=== PATIENT | female | born 1980 | race Caucasian/White ===

== ENCOUNTER 2017-12-02 07:33 | Inpatient (IN) | payer BC ==
[~2017-12-02] VITALS: Ht 162.6 cm; Wt 103.0 kg
[2017-12-02] MEDS: LR 1,000 ML IV SCH ×2 (07:49→23:30)
[2017-12-02] MEDS ORDERED: CLINDAMYCIN 900 mg/50mL D5W 50 ML IV ONE (10:30)
[2017-12-02] MEDS ORDERED: CEFAZOLIN 2 GM IVPB PREMIX 50 ML IV ONE (10:30)
[2017-12-02 11:15] LABS: BASOPHILS % (AUTO) 0.5 % (0.0-2.0); EOSINOPHILS # (AUTO) 0.1 K/uL (0.0-0.4); EOSINOPHILS % (AUTO) 0.7 % (0.0-4.0); HEMATOCRIT 38.7 % (36-48); HEMOGLOBIN 12.9 g/dL (12.0-16.0); LYMPHOCYTES % (AUTO) 24.2 % (20.5-51.5); MEAN CORPUSCULAR HEMOGLOBIN 29 pg (27-31); MEAN CORPUSCULAR HGB CONC 33 % (32-36); MEAN CORPUSCULAR VOLUME 86 fL (79.0-98.0); MONOCYTES # (AUTO) 0.4 K/uL (0.0-1.0); MONOCYTES % (AUTO) 4.4 % (1.7-9.3); NEUTROPHILS # (AUTO) 5.8 K/uL (1.8-7.7); NEUTROPHILS % (AUTO) 70.2 % (40.0-70.0); PLATELET COUNT (AUTO) 233 K/uL (130-430); RED BLOOD CELL COUNT(AUTO) 4.49 MIL/uL (4.2-6.2); RED CELL DISTRIBUTION WIDTH 14.5 % (9.0-15.0); WHITE BLOOD COUNT (AUTO) 8.3 K/uL (4.8-10.8)
[2017-12-02 12:05] LABS: BILIRUBIN,URINE NEGATIVE (NEGATIVE); BLOOD, URINE NEGATIVE (NEGATIVE); CLARITY/URINE CLEAR (CLEAR); COLOR,URINE YELLOW (YELLOW); GLUCOSE,URINE NEGATIVE (NEGATIVE); KETONES,URINE 1+ (NEGATIVE); LEUKOCYTE ESTERASE ,URINE TRACE (NEGATIVE); NITRITE, URINE NEGATIVE (NEGATIVE); PROTEIN URINE TRACE (NEGATIVE); UROBILINOGEN,URINE 0.2 (0.2-1.0)
[2017-12-02 12:25] LABS: BACTERIA,URINE RARE /HPF (None Seen); YEAST,URINE None Seen /HPF (None Seen)
[2017-12-02 12:26] LABS: MUCUS,URINE None Seen /LPF (None Seen)
[2017-12-02] MEDS ORDERED: LR 1,000 ML IV ONE (12:27)
[2017-12-02] MEDS ORDERED: MORPHINE SULFATE 10MG/10ML PF AMP SP SCH (14:00)
[2017-12-02] MEDS ORDERED: NALOXONE HCL 0.4 MG/ML AMP (NARCAN) IVP PRN ×2 (14:00)
[2017-12-02] MEDS ORDERED: KETOROLAC TROMETHAMINE 30 MG VIAL IVP PRN (14:00)
[2017-12-02] MEDS ORDERED: DIPHENHYDRAMINE INJ 50 MG/ML VIAL IVP PRN (14:00)
[2017-12-02] MEDS ORDERED: fentaNYL CITRATE/PF 100 MCG/2 ML AMP IVP PRN ×2 (14:00)
[2017-12-02] MEDS ORDERED: KETOROLAC TROMETHAMINE 60 MG/2 ML VIAL IM PRN (14:00)
[2017-12-02] MEDS ORDERED: NALBUPHINE HCL 10 MG/ML AMP IVP PRN (14:00)
[2017-12-02] MEDS ORDERED: ONDANSETRON HCL 4 MG/2 ML VIAL IVP PRN (14:00)
[2017-12-02] MEDS ORDERED: OXYTOCIN/0.9 % SODIUM CHLORIDE 1,000 ML IV ONE (14:25)
[2017-12-02] MEDS ORDERED: BISACODYL 10 MG/SUPPOSITORY RC PRN (14:30)
[2017-12-02] MEDS ORDERED: DIPH-TET-PERTUS Vaccine 0.5 ML VIAL (ADACEL) I.M. PRN (14:30)
[2017-12-02] MEDS ORDERED: HYDROcodone/ACETAMIN 5-325 MG TAB (NORCO/ VICODIN) PO PRN (14:30)
[2017-12-02] MEDS ORDERED: RHO(D) IMMUNE GLOBULIN/MALTOSE 1500 UNITS/1.3 ML (WINHRO) IM PRN (14:30)
[2017-12-02] MEDS ORDERED: OXYCODONE/ACETAMINOPHEN 5-325 TABLET PO PRN ×2 (14:30)
[2017-12-02] MEDS ORDERED: MEASLES,MUMPS&RUBELLA VACC/PF 12500 UNIT/0.5 ML VIAL SUBQ PRN (14:30)
[2017-12-02] MEDS ORDERED: BUPIVACAINE /DEX PF 0.75% SPINAL 2 ML AMP INJ ONE (14:45)
[2017-12-02] MEDS ORDERED: WATER FOR IRRIGATION,STERILE 1,000 ML IRRIG.SOLN IR ONE (14:45)
[2017-12-02] MEDS ORDERED: MORPHINE SULFATE 10MG/10ML PF AMP ONE (14:45)
[2017-12-02] MEDS ORDERED: LR 1,000 ML IV.SOLN IV ONE (14:45)
[2017-12-02] MEDS ORDERED: CEFAZOLIN 1 GM IVPB PREMIX 50 ML IV SCH (18:00)
[2017-12-02 18:43] VITALS: BP_SYST 130
[2017-12-02] MEDS ORDERED: TEMAZEPAM 15 MG CAPSULE PO PRN (21:00)
[2017-12-02] MEDS: CEFAZOLIN 1 GM IVPB PREMIX 50 ML IV SCH (21:17)
[2017-12-03] MEDS: CEFAZOLIN 1 GM IVPB PREMIX 50 ML IV SCH ×2 (02:50→08:39)
[2017-12-03] MEDS: KETOROLAC TROMETHAMINE 30 MG VIAL IVP SCH ×4 (06:13→23:34)
[2017-12-03 07:44] LABS: MONOCYTES # (AUTO) 0.5 K/uL (0.0-1.0)
[2017-12-03 07:56] LABS: BASOPHILS # (AUTO) 0.1 K/uL (0.0-0.2); BASOPHILS % (AUTO) 0.6 % (0.0-2.0); EOSINOPHILS % (AUTO) 0.4 % (0.0-4.0); HEMOGLOBIN 10.7 g/dL (12.0-16.0); LYMPHOCYTES # (AUTO) 1.6 K/uL (1.0-5.5); LYMPHOCYTES % (AUTO) 13.5 % (20.5-51.5); MEAN CORPUSCULAR HEMOGLOBIN 29 pg (27-31); MEAN CORPUSCULAR HGB CONC 34 % (32-36); MEAN CORPUSCULAR VOLUME 87 fL (79.0-98.0); MONOCYTES % (AUTO) 3.9 % (1.7-9.3); NEUTROPHILS # (AUTO) 9.7 K/uL (1.8-7.7); NEUTROPHILS % (AUTO) 81.6 % (40.0-70.0); PLATELET COUNT (AUTO) 204 K/uL (130-430); RED BLOOD CELL COUNT(AUTO) 3.68 MIL/uL (4.2-6.2); RED CELL DISTRIBUTION WIDTH 14.2 % (9.0-15.0); WHITE BLOOD COUNT (AUTO) 11.9 K/uL (4.8-10.8)
[2017-12-03] MEDS ORDERED: KETOROLAC TROMETHAMINE 30 MG VIAL IVP SCH (12:00)
[2017-12-03] MEDS: SIMETHICONE 80 MG TAB.CHEW PO PRN ×2 (13:34→23:34)
[2017-12-03] MEDS: IBUPROFEN 600 MG TABLET PO SCH (23:30)
[2017-12-04] MEDS: IBUPROFEN 600 MG TABLET PO SCH ×3 (05:50→18:00)
[2017-12-04] MEDS: SIMETHICONE 80 MG TAB.CHEW PO PRN (05:50)
[2017-12-05] MEDS: IBUPROFEN 600 MG TABLET PO SCH ×2 (00:15→05:50)
== END 2017-12-05 13:00 | disposition home or self-care (01) | DRG 766 ==
LOC: SPU 10:15
PROVIDERS: ADMIT Specialist; ATTEND Specialist
PROC: 10D00Z1 Extraction of Products of Conception, Low, Open Approach (ICD-10-PCS; principal; 2017-12-02 12:30)
DX: O24.429 Gestational diabetes mellitus in childbirth, unspecified control (principal); O36.63X0 Maternal care for excessive fetal growth, third trimester, not applicable or unspecified; O99.214 Obesity complicating childbirth; E66.9 Obesity, unspecified; O66.0 Obstructed labor due to shoulder dystocia; Z3A.39 39 weeks gestation of pregnancy; Z68.39 Body mass index [BMI] 39.0-39.9, adult; Z37.0 Single live birth
CPT/HCPCS: 36415; 81000-TC; 82962; 85025; 86592; 86886; 86900; 86901; 87086; 94760; J0690; J1885; J2274; J2405; J2590; J3490; J7120

== ENCOUNTER 2021-06-28 17:25 | Inpatient (IN) | payer BC, SELFPAY ==
[~2021-06-28] VITALS: Ht 162.6 cm; Wt 97.5 kg
[~2021-06-28 17:25] MED LIST: BUPIVACAINE /DEX PF 0.75% SPINAL 2 ML AMP INJ ONE; LR 1,000 ML IV.SOLN IV ONE; MORPHINE SULFATE 10MG/10ML PF AMP EP ONE; NS IRRIG SOLN 1000 ML IR ONE; ONDANSETRON HCL 4 MG/2 ML VIAL ONE; WATER FOR IRRIGATION,STERILE 1,000 ML IRRIG.SOLN IR ONE
[2021-06-28] MEDS ORDERED: TERBUTALINE SULFATE 1 MG/ML VIAL SUBCUT ONE (18:45)
[2021-06-28] MEDS ORDERED: NALBUPHINE HCL 10 MG/ML AMP IVP PRN (18:45)
[2021-06-28 19:24] VITALS: BP_SYST 140
[2021-06-28 20:20] LABS: BASOPHILS % (AUTO) 0.3 % (0.0-2.0); EOSINOPHILS % (AUTO) 0.5 % (0.0-4.0); HEMATOCRIT 38.1 % (36-48); HEMOGLOBIN 12.7 g/dL (12.0-16.0); LYMPHOCYTES # (AUTO) 2.3 K/uL (1.0-5.5); LYMPHOCYTES % (AUTO) 27.3 % (20.5-51.5); MEAN CORPUSCULAR HEMOGLOBIN 28 pg (27-31); MEAN CORPUSCULAR HGB CONC 33 % (32-36); MEAN CORPUSCULAR VOLUME 85 fL (79.0-98.0); MONOCYTES # (AUTO) 0.4 K/uL (0.0-1.0); MONOCYTES % (AUTO) 4.8 % (1.7-9.3); NEUTROPHILS # (AUTO) 5.7 K/uL (1.8-7.7); NEUTROPHILS % (AUTO) 67.1 % (40.0-70.0); PLATELET COUNT (AUTO) 244 K/uL (130-430); WHITE BLOOD COUNT (AUTO) 8.5 K/uL (4.8-10.8)
[2021-06-28] MEDS: LR 1,000 ML IV SCH ×2 (20:38→22:39)
[2021-06-28] MEDS ORDERED: CEFAZOLIN 2 GM IVPB PREMIX 50 ML IV ONE (23:00)
[2021-06-28] MEDS ORDERED: LR 1,000 ML IV SCH (23:00)
[2021-06-28] MEDS ORDERED: CITRIC ACID/SODIUM CITRATE 30 ML UDC PO ONE (23:00)
[2021-06-29] MEDS ORDERED: MORPHINE SULFATE 10MG/10ML PF AMP SP SCH (00:15)
[2021-06-29] MEDS ORDERED: DIPHENHYDRAMINE INJ 50 MG/ML VIAL IVP PRN (00:15)
[2021-06-29] MEDS ORDERED: fentaNYL CITRATE/PF 100 MCG/2 ML AMP IVP PRN ×2 (00:15)
[2021-06-29] MEDS ORDERED: METOCLOPRAMIDE HCL 10 MG/2 ML VIAL IVP PRN (00:15)
[2021-06-29] MEDS ORDERED: NALBUPHINE HCL 10 MG/ML AMP IVP PRN (00:15)
[2021-06-29] MEDS ORDERED: NALOXONE HCL 0.4 MG/ML AMP (NARCAN) IVP PRN ×3 (00:15→00:45)
[2021-06-29] MEDS ORDERED: ONDANSETRON HCL 4 MG/2 ML VIAL IVP PRN ×2 (00:15)
[2021-06-29] MEDS ORDERED: KETOROLAC TROMETHAMINE 60 MG/2 ML VIAL IM PRN (00:15)
[2021-06-29 00:38] VITALS: BP_SYST 119
[2021-06-29 00:40] LABS: BILIRUBIN,URINE NEGATIVE (NEGATIVE); BLOOD, URINE 1+ (NEGATIVE); CLARITY/URINE CLEAR (CLEAR); COLOR,URINE YELLOW (YELLOW); GLUCOSE,URINE NEGATIVE (NEGATIVE); KETONES,URINE 1+ (NEGATIVE); LEUKOCYTE ESTERASE ,URINE NEGATIVE (NEGATIVE); NITRITE, URINE NEGATIVE (NEGATIVE); PROTEIN URINE TRACE (NEGATIVE); UROBILINOGEN,URINE 0.2 (0.2-1.0)
[2021-06-29] MEDS ORDERED: ANUSOL 1 EA SUPP.RECT (PREPARATION H) RC PRN (00:45)
[2021-06-29] MEDS ORDERED: DIPH-TET-PERTUS Vaccine 0.5 ML VIAL (ADACEL) I.M. PRN (00:45)
[2021-06-29] MEDS ORDERED: OXYCODONE/ACETAMINOPHEN *10*mg/325 mg TABLET PO PRN (00:45)
[2021-06-29] MEDS ORDERED: OXYCODONE/ACETAMINOPHEN 5-325 TABLET PO PRN (00:45)
[2021-06-29] MEDS ORDERED: LANOLIN 7 GM OINT. TP PRN (00:45)
[2021-06-29] MEDS ORDERED: TEMAZEPAM 15 MG CAPSULE PO PRN (00:45)
[2021-06-29] MEDS ORDERED: MEASLES,MUMPS&RUBELLA VACC/PF 12500 UNIT/0.5 ML VIAL SUBQ PRN (00:45)
[2021-06-29] MEDS ORDERED: LR 1,000 ML IV SCH (00:45)
[2021-06-29] MEDS ORDERED: BISACODYL 10 MG/SUPPOSITORY RC PRN (00:45)
[2021-06-29] MEDS ORDERED: RHO(D) IMMUNE GLOBULIN/MALTOSE 1500 UNITS/1.3 ML (WINHRO) IM PRN (00:45)
[2021-06-29] MEDS ORDERED: HYDROcodone/ACETAMIN 5-325 MG TAB (NORCO/ VICODIN) PO PRN (00:45)
[2021-06-29 01:25] LABS: BACTERIA,URINE RARE /HPF (None Seen); MUCUS,URINE 1+ /LPF (None Seen); WBC,URINE 0-3 /HPF (0-3)
[2021-06-29] MEDS: CEFAZOLIN 1 GM IVPB PREMIX 50 ML IV SCH ×3 (06:24→18:16)
[2021-06-29] MEDS: OXYTOCIN/0.9 % SODIUM CHLORIDE 1,000 ML IV SCH ×2 (06:25→15:38)
[2021-06-29] MEDS: SIMETHICONE 80 MG TAB.CHEW PO PRN ×2 (09:54→18:16)
[2021-06-29] MEDS: DOCUSATE SODIUM 100 MG CAPSULE PO SCH ×2 (09:54→21:00)
[2021-06-29] MEDS: KETOROLAC TROMETHAMINE 30 MG VIAL IVP SCH (16:29)
[2021-06-29] MEDS: SENNOSIDES/DOCUSATE SODIUM 1 TAB TABLET(SENOKOT-S) PO SCH (21:00)
[2021-06-30] MEDS: KETOROLAC TROMETHAMINE 30 MG VIAL IVP SCH ×2 (06:26)
[2021-06-30] MEDS: SIMETHICONE 80 MG TAB.CHEW PO PRN ×2 (06:29→17:55)
[2021-06-30] MEDS: DOCUSATE SODIUM 100 MG CAPSULE PO SCH ×2 (09:25→20:19)
[2021-06-30] MEDS: IBUPROFEN 600 MG TABLET PO SCH ×2 (12:00→18:01)
[2021-06-30 13:06] LABS: BASOPHILS % (AUTO) 0.3 % (0.0-2.0); EOSINOPHILS # (AUTO) 0.1 K/uL (0.0-0.4); EOSINOPHILS % (AUTO) 0.9 % (0.0-4.0); HEMATOCRIT 28.1 % (36-48); HEMOGLOBIN 9.4 g/dL (12.0-16.0); LYMPHOCYTES # (AUTO) 1.3 K/uL (1.0-5.5); LYMPHOCYTES % (AUTO) 12.4 % (20.5-51.5); MEAN CORPUSCULAR HEMOGLOBIN 29 pg (27-31); MEAN CORPUSCULAR HGB CONC 34 % (32-36); MEAN CORPUSCULAR VOLUME 86 fL (79.0-98.0); MONOCYTES # (AUTO) 0.4 K/uL (0.0-1.0); MONOCYTES % (AUTO) 3.6 % (1.7-9.3); NEUTROPHILS # (AUTO) 8.8 K/uL (1.8-7.7); NEUTROPHILS % (AUTO) 82.8 % (40.0-70.0); PLATELET COUNT (AUTO) 206 K/uL (130-430); RED BLOOD CELL COUNT(AUTO) 3.27 MIL/uL (4.2-6.2); RED CELL DISTRIBUTION WIDTH 15.5 % (9.0-15.0); WHITE BLOOD COUNT (AUTO) 10.6 K/uL (4.8-10.8)
[2021-06-30] MEDS: SENNOSIDES/DOCUSATE SODIUM 1 TAB TABLET(SENOKOT-S) PO SCH (20:19)
[2021-07-01] MEDS: IBUPROFEN 600 MG TABLET PO SCH ×3 (06:00→11:56)
[2021-07-01] MEDS: SIMETHICONE 80 MG TAB.CHEW PO PRN ×2 (07:30→11:55)
[2021-07-01] MEDS: DOCUSATE SODIUM 100 MG CAPSULE PO SCH (09:08)
== END 2021-07-01 15:30 | disposition home or self-care (01) | DRG 788 ==
LOC: SPU 17:25 → OBSVTOIN 18:00
PROVIDERS: ADMIT Specialist; ATTEND Specialist
PROC: 10D00Z1 Extraction of Products of Conception, Low, Open Approach (ICD-10-PCS; principal; 2021-06-28 23:40)
DX: O34.211 Maternal care for low transverse scar from previous cesarean delivery (principal); O62.2 Other uterine inertia; O66.41 Failed attempted vaginal birth after previous cesarean delivery; Z20.822 Contact with and (suspected) exposure to COVID-19; Z37.0 Single live birth; Z3A.40 40 weeks gestation of pregnancy; Z86.32 Personal history of gestational diabetes
CPT/HCPCS: 36415; 81000; 82948; 82962; 85025; 86592; 86886; 86900; 86901; G0378; J0690; J1885; J2274; J2300; J2405; J2590; J3490; J7120